=== PATIENT | male | born 1995 | race Caucasian/White ===

== ENCOUNTER 2017-12-13 11:46 | Emergency (ER) | payer MEDICAID ==
[~2017-12-13] VITALS: Ht 188 cm; Wt 96.2 kg
[2017-12-13 12:14] VITALS: BP_SYST 124
--- NOTE | 2017-12-13 12:15 | NUR ---
Dr. Chavez seeing pt in triage.
[2017-12-13 12:38] LABS: BASOPHILS % (AUTO) 0.7 % (0.0-2.0); EOSINOPHILS # (AUTO) 0.3 K/uL (0.0-0.4); EOSINOPHILS % (AUTO) 5.6 % (0.0-4.0); HEMATOCRIT 42.2 % (36-54); HEMOGLOBIN 14.2 g/dL (14.0-18.0); LYMPHOCYTES # (AUTO) 1.3 K/uL (1.0-5.5); MEAN CORPUSCULAR HEMOGLOBIN 30 pg (27-31); MEAN CORPUSCULAR HGB CONC 34 % (32-36); MEAN CORPUSCULAR VOLUME 89 fL (79.0-98.0); MONOCYTES # (AUTO) 0.4 K/uL (0.0-1.0); MONOCYTES % (AUTO) 8.7 % (1.7-9.3); NEUTROPHILS # (AUTO) 2.9 K/uL (1.8-7.7); PLATELET COUNT (AUTO) 214 K/uL (130-430); RED BLOOD CELL COUNT(AUTO) 4.73 MIL/uL (4.2-6.2); RED CELL DISTRIBUTION WIDTH 12.3 % (9.0-15.0); WHITE BLOOD COUNT (AUTO) 4.9 K/uL (4.8-10.8)
[2017-12-13 13:02] LABS: CALCIUM 9.5 mg/dL (8.4-11.0); CREATININE 1.33 mg/dL (0.55-1.30); INR 1.1 (0.80-1.20); POTASSIUM 4.1 mmol/L (3.5-5.1); PROTHROMBIN TIME 11.1 SECS (9.5-12.5)
[2017-12-13 13:06] LABS: ALBUMIN 4.7 g/dL (3.4-4.8); TOTAL BILIRUBIN 0.8 mg/dL (0.0-1.0)
--- NOTE | 2017-12-13 13:07 | NUR ---
Patient to ER bed 4 to gown for evaluation. Side rails up. Report given to Martinez NOLAN.
--- NOTE | 2017-12-13 13:10 | NUR ---
Pt presents to ED c/o abdominal pain s/p consuming too much protein for bodybuilding purposes. Pt has no acute distress noted. Pt denies med hx.
[2017-12-13 13:37] LABS: BILIRUBIN,URINE NEGATIVE (NEGATIVE); CLARITY/URINE SL HAZY (CLEAR); COLOR,URINE YELLOW (YELLOW); GLUCOSE,URINE NEGATIVE (NEGATIVE); KETONES,URINE NEGATIVE (NEGATIVE); PROTEIN URINE NEGATIVE (NEGATIVE)
[2017-12-13 13:38] LABS: BLOOD, URINE NEGATIVE (NEGATIVE); LEUKOCYTE ESTERASE ,URINE NEGATIVE (NEGATIVE); NITRITE, URINE NEGATIVE (NEGATIVE); UROBILINOGEN,URINE 0.2 (0.2-1.0)
[2017-12-13 13:55] VITALS: BP_SYST 124
--- NOTE | 2017-12-13 13:56 | NUR ---
Patient given written and verbal discharge instructions and verbalizes understanding. ER MD discussed with patient the results and treatment provided. Patient in stable condition. ID arm band removed. Rx of PROTONIX, MALLOX given. Patient educated on pain management and to follow up with PMD. Pain Scale 0/10. Opportunity for questions provided and answered.
== END 2017-12-13 13:56 | disposition home or self-care (01) ==
LOC: SED 11:46
DX: K21.9 Gastro-esophageal reflux disease without esophagitis (principal)
CPT/HCPCS: 36415; 80053; 81003; 83690-TC; 85025; 85610-TC; 85730-TC; 99285